=== PATIENT | female | born 1970 | race Caucasian/White ===

== ENCOUNTER 2019-04-22 09:50 | Outpatient (CLI) | payer BC, SELFPAY ==
--- NOTE | ~2019-04-22 | US_ITS ---
EXAMINATION: US thyroid EXAM DATE: 04/22/2019 10:19 INDICATION: Primary hyperparathyroidism. TECHNIQUE: Multiple grayscale and Doppler images of the thyroid were obtained (by a technologist who performed the scan) and subsequently reviewed. Individual nodules may be reported using TI-RADS syst em as designated by the 2017 ACR White Paper TI-RADS committee. There is no prior study for comparis on. FINDINGS: The right thyroid lobe measuring 5.6 x 1.7 x 2.0 cm, the left measuring 5.4 x 1.3 x 1.9 cm. There is a nodule in the peripheral medial deep mid pole of the right thyroid lobe measuring 1.3 x 0. 8 x 1.0 centimeters, solid (2 points), hypoechoic (2 points), wider than tall, smooth margin, withou t echogenic foci, category TR4 for this nodule, cannot be certain whether or not this is within or ex ternal to the thyroid capsule. There is additional smaller right thyroid lobe nodule measuring 4 mm. IMPRESSION: Small soft tissue nodule in the peripheral aspect of right thyroid lobe, can't exclude th at this is parathyroid adenoma. Reviewed, dictated and finalized at location B. IMPRESSION: Small soft tissue nodule in the peripheral aspect of right thyroid lobe, can't exclude that this is parathyroid adenoma.
== END 2019-04-22 09:51 ==
PROVIDERS: PCP Internal Medicine; Visit Provider Internal Medicine
DX: E21.0 Primary hyperparathyroidism (principal)
CPT/HCPCS: 76536

== ENCOUNTER → 2019-08-31 12:38 | Outpatient (CLI) | payer BC, SELFPAY ==
--- NOTE | ~2019-08-31 | MM_ITS ---
EXAMINATION: MM screening barry BI w janak HISTORY: Screening mammogram TECHNIQUE: Craniocaudal and mediolateral oblique 3-D tomosynthesis images were obtained and synthetic 2-D images were generated. CAD analysis was submitted and interpreted. COMPARISON: No prior mammogram is available for comparison at this institution. BREAST PARENCHYMAL COMPOSITION: There are scattered areas of fibroglandular density. FINDINGS: There is a mass in the central aspect of the right breast measuring 10 mm. There is no evid ence of suspicious mass, calcification, or architectural distortion to suggest malignancy in the left breast. There has been no suspicious interval change. IMPRESSION: 1. Right breast mass located centrally measuring 10 mm. 2. Additional mammographic views and possible breast ultrasound are recommended. BI-RADS Category 0: Incomplete: Needs additional imaging evaluation. Reviewed, dictated and finalized at location A. IMPRESSION: 1. Right breast mass located centrally measuring 10 mm. 2. Additional mammographic views and possible breast ultrasound are recommended . BI-RADS Category 0: Incomplete: Needs additional imaging evaluation.
== END ==
PROVIDERS: Visit Provider Internal Medicine
DX: Z12.31 Encounter for screening mammogram for malignant neoplasm of breast (principal); R92.8 Other abnormal and inconclusive findings on diagnostic imaging of breast
CPT/HCPCS: 77063; 77067